=== PATIENT | female | born 1975 | race Hispanic/Latino ===

== ENCOUNTER 2020-09-01 02:30 | Emergency (ER) | payer SELFPAY ==
[2020-09-01] MEDS ORDERED: Ibuprofen 800 MG TAB ONE (03:02)
== END 2020-09-01 03:08 | disposition home or self-care (01) ==
LOC: BURERS 02:30
DX: S90.122A Contusion of left lesser toe(s) without damage to nail, initial encounter (principal); W20.8XXA Other cause of strike by thrown, projected or falling object, initial encounter